=== PATIENT | female | born 2000 | race Caucasian/White ===

== ENCOUNTER 2018-06-22 07:39 | Emergency (ER) | payer BC ==
--- NOTE | 2018-06-22 08:31 | EDM.PDOC ---
ED HPI GENERAL MEDICAL PROBLEM - General Chief Complaint: Abdominal Pain Stated Complaint: RIGHT SIDE PAIN/NAUSEA Time Seen by Provider: 06/22/18 08:31 Source of Information: Reports: Patient History Limitations: Reports: No Limitations - History of Present Illness INITIAL COMMENTS - FREE TEXT/NARRATIVE: 17-year-old female presents the ED for evaluation of right allie-abdominal pain but primarily right lower quadrant. She states that the pain came on yesterday and hasn't really changed in position. She felt she was may be constipated and takes medication in her bowels did work fairly normally this morning without blood. She does have some feeling of urinary tract infection with dysuria and a sense of need to go or urgency. No history of kidney stones. Pain did cause nausea but she never did vomit. She ate normally yesterday. No associated fever but does feel chilled. Last trimester. Was 2 weeks ago. On time and as expected. She has done home test which was negative. No previous abdominal surgery. No pain in her back. She suggest terminal dysuria. Onset: Gradual Onset Date: 06/21/18 (Diffuse right allie-abdominal discomfort and pain) Duration: Day(s): (24 hours) Location: Reports: Abdomen (Right lower quadrant of the abdomen. No radiation) Quality: Reports: Ache Severity: Moderate (4-10) Improves with: Reports: Rest Worsens with: Reports: Movement Context: Reports: Other (Spontaneous occurrence). Denies: Activity (Hurts to walk and to stand.), Exercise, Lifting, Sick Contact, Trauma Associated Symptoms: Reports: Fever/Chills, Malaise, Nausea/Vomiting (Chills but no fever). Denies: Confusion, Chest Pain, Cough, cough w sputum, Diaphoresis, Headaches, Loss of Appetite, Rash, Seizure (Minimal nausea no vomiting), Shortness of Breath, Syncope, Weakness Treatments TEXTILES PRINTER: Reports: Other (see below) Other Treatments TEXTILES PRINTER: fiber, probiotic Right Abdomen Pain Score (Numeric/FACES): 6 - Related Data Allergies Allergy/AdvReac Type Severity Reaction Status Date / Time No Known Allergies Allergy Verified 06/22/18 07:57 Home Meds: Home Meds Phenazopyridine HCl [Pyridium] 100 mg PO Q6H #4 tablet 06/22/18 [Rx] Sulfamethoxazole/Trimethoprim [Bactrim Ds Tablet] 1 each PO BID #14 tablet 06/22 [Rx] Past Medical History Respiratory History: Reports: Asthma - Infectious Disease History Infectious Disease History: Reports: Chicken Pox Social & Family History - Family History Family Medical History: Noncontributory - Tobacco Use Smoking Status *Q: Light Tobacco Smoker Years of Tobacco use: 2 Packs/Tins Daily: 0.5 - Caffeine Use Caffeine Use: Reports: None - Recreational Drug Use Recreational Drug Use: No - Living Situation & Occupation Living situation: Reports: Single Occupation: Employed ED ROS GENERAL - Review of Systems Review Of Systems: See Below Constitutional: Reports: Chills, Malaise, Weakness, Fatigue, Decreased Appetite. Denies: Fever, Weight Loss HEENT: Reports: No Symptoms Respiratory: Reports: No Symptoms Cardiovascular: Reports: No Symptoms Endocrine: Reports: No Symptoms GI/Abdominal: Reports: Abdominal Pain, Constipation (She has her present illness ), Nausea (Committed nausea). Denies: Diarrhea, Decreased Appetite, Difficulty Swallowing, Hematemesis, Hematochezia, Melena, Vomiting : Reports: Frequency, Urgency. Denies: Dysuria Musculoskeletal: Reports: No Symptoms Skin: Reports: No Symptoms Neurological: Reports: No Symptoms Psychiatric: Reports: No Symptoms Hematologic/Lymphatic: Reports: No Symptoms Immunologic: Reports: No Symptoms ED EXAM, GI/ABD - Physical Exam Exam: See Below Exam Limited By: No Limitations General Appearance: Alert, WD/WN, No Apparent Distress, Other (Vital signs are normal and she is afebrile.) Eyes: Bilateral: Normal Appearance (No jaundice) Throat/Mouth: Normal Inspection, Normal Lips, Normal Oropharynx Neck: Normal Inspection, Supple, Non-Tender, Full Range of Motion. No: Lymphadenopathy (L), Lymphadenopathy (R) Respiratory/Chest: No Respiratory Distress, Lungs Clear, Normal Breath Sounds, No Accessory Muscle Use Cardiovascular: Normal Peripheral Pulses, Regular Rate, Rhythm, No Edema, No Gallop, No Murmur GI/Abdominal Exam: Normal Bowel Sounds, Soft, Non-Tender, No Organomegaly, No Abnormal Bruit, No Mass, Pelvis Stable, Tender (Mild tenderness right upper quadrant and over McBurney's point but). No: Guarding, Rigid, Rebound Back Exam: Normal Inspection, Full Range of Motion. No: CVA Tenderness (L), CVA Tenderness (R) Extremities: Normal Inspection, Normal Range of Motion, Non-Tender, No Pedal Edema, Normal Capillary Refill Neurological: Alert, Oriented, CN II-XII Intact, Normal Cognition, Normal Gait Psychiatric: Normal Affect, Normal Mood Skin Exam: Warm, Dry, Intact, Normal Color, No Rash Course - Vital Signs Last Recorded V/S: Last Vital Signs Temp 36.3 C 06/22/18 07:57 Pulse 89 06/22/18 07:57 Resp 20 06/22/18 07:57 BP 127/63 06/22/18 07:57 Pulse Ox 95 06/22/18 07:57 - Orders/Labs/Meds Labs: Laboratory Tests 06/22/18 06/22/18 06/22/18 Range/Units 08:25 08:25 08:25 WBC 7.97 (3.98-10.04) K/mm3 RBC 4.31 (3.98-5.22) M/mm3 Hgb 12.8 (11.2-15.7) gm/L Hct 38.3 (34.1-44.9) % MCV 88.9 (79.4-94.8) fl MCH 29.7 (25.6-32.2) pg MCHC 33.4 (32.2-35.5) g/dl RDW Std Deviation 41.0 (36.4-46.3) fL Plt Count 230 (182-369) K/mm3 MPV 10.2 (9.4-12.3) fl Neutrophils % (Manual) 73 H (40-60) % Band Neutrophils % 1 (0-10) % Lymphocytes % (Manual) 25 (20-40) % Atypical Lymphs % 0 % Monocytes % (Manual) 0 L (2-10) % Eosinophils % (Manual) 1 (0.7-5.8) % Basophils % (Manual) 0 L (0.1-1.2) Platelet Estimate Adequate RBC Morph Comment Normal Sodium 140 (136-145) mEq/L Potassium 3.8 (3.5-5.1) mEq/L Chloride 103 (98-107) mEq/L Carbon Dioxide 26 (21-32) mEq/L Anion Gap 14.8 (5-15) BUN 11 (7-18) mg/dL Creatinine 0.8 (0.55-1.02) mg/dL Est Cr Clr Drug Dosing 89.46 mL/min Estimated GFR (MDRD) > 60 (>60) mL/min BUN/Creatinine Ratio 13.8 L (14-18) Glucose 99 (74-106) mg/dL Calcium 9.0 (8.5-10.1) mg/dL Total Bilirubin 0.5 (0.2-1.0) mg/dL AST 20 (15-37) U/L ALT 21 (14-59) U/L Alkaline Phosphatase 80 (46-116) U/L C-Reactive Protein 2.3 H* (<1.0) mg/dL Total Protein 7.6 (6.4-8.2) g/dl Albumin 3.6 (3.4-5.0) g/dl Globulin 4.0 gm/dL Albumin/Globulin Ratio 0.9 L (1-2) Lipase 116 (73-393) U/L HCG, Qual Negative (NEGATIVE) Urine Color (Yellow) Urine Appearance (Clear) Urine pH (5.0-8.0) Ur Specific [place] (1.005-1.030) Urine Protein (Negative) Urine Glucose (UA) (Negative) Urine Ketones (Negative) Urine Occult Blood (Negative) Urine Nitrite (Negative) Urine Bilirubin (Negative) Urine Urobilinogen (0.2-1.0) Ur Leukocyte Esterase (Negative) Urine RBC (0-5) /hpf Urine WBC (0-5) /hpf Ur Epithelial Cells (0-5) /hpf Urine Bacteria (FEW) /hpf Urine Mucus (FEW) /hpf 06/22/18 Range/Units 09:05 WBC (3.98-10.04) K/mm3 RBC (3.98-5.22) M/mm3 Hgb (11.2-15.7) gm/L Hct (34.1-44.9) % MCV (79.4-94.8) fl MCH (25.6-32.2) pg MCHC (32.2-35.5) g/dl RDW Std Deviation (36.4-46.3) fL Plt Count (182-369) K/mm3 MPV (9.4-12.3) fl Neutrophils % (Manual) (40-60) % Band Neutrophils % (0-10) % Lymphocytes % (Manual) (20-40) % Atypical Lymphs % % Monocytes % (Manual) (2-10) % Eosinophils % (Manual) (0.7-5.8) % Basophils % (Manual) (0.1-1.2) Platelet Estimate RBC Morph Comment Sodium (136-145) mEq/L Potassium (3.5-5.1) mEq/L Chloride (98-107) mEq/L Carbon Dioxide (21-32) mEq/L Anion Gap (5-15) BUN (7-18) mg/dL Creatinine (0.55-1.02) mg/dL Est Cr Clr Drug Dosing mL/min Estimated GFR (MDRD) (>60) mL/min BUN/Creatinine Ratio (14-18) Glucose (74-106) mg/dL Calcium (8.5-10.1) mg/dL Total Bilirubin (0.2-1.0) mg/dL AST (15-37) U/L ALT (14-59) U/L Alkaline Phosphatase (46-116) U/L C-Reactive Protein (<1.0) mg/dL Total Protein (6.4-8.2) g/dl Albumin (3.4-5.0) g/dl Globulin gm/dL Albumin/Globulin Ratio (1-2) Lipase (73-393) U/L HCG, Qual (NEGATIVE) Urine Color Yellow (Yellow) Urine Appearance Slt cloudy H (Clear) Urine pH 7.0 (5.0-8.0) Ur Specific [place] 1.020 (1.005-1.030) Urine Protein 2+ H (Negative) Urine Glucose (UA) Negative (Negative) Urine Ketones Negative (Negative) Urine Occult Blood 2+ H (Negative) Urine Nitrite Negative (Negative) Urine Bilirubin Negative (Negative) Urine Urobilinogen 0.2 (0.2-1.0) Ur Leukocyte Esterase 2+ H (Negative) Urine RBC 5-10 H (0-5) /hpf Urine WBC 20-30 H (0-5) /hpf Ur Epithelial Cells 0-5 (0-5) /hpf Urine Bacteria Few (FEW) /hpf Urine Mucus Few (FEW) /hpf Meds: Medications Discontinued Medications Generic Name Dose Route Start Last Admin Trade Name Freq PRN Reason Stop Dose Admin Dextrose/Sodium Chloride 1,000 mls @ 500 mls/hr 06/22/18 08:45 06/22/18 08:45 Dextrose 5%-Normal Saline IV 500 mls/hr ASDIRECTED EDISON Administration Ceftriaxone Sodium 2 gm/ 100 mls @ 100 mls/hr 06/22/18 10:45 06/22/18 11:11 Sodium Chloride IV 100 mls/hr Q24H EDISON Administration Ketorolac Tromethamine 30 mg 06/22/18 08:45 06/22/18 09:03 Toradol IVPUSH 30 mg ONETIME EDISON Administration Metoclopramide HCl 7.5 mg 06/22/18 08:37 06/22/18 08:46 Reglan IVPUSH 06/22/18 08:38 7.5 mg ONETIME ONE Administration - Radiology Interpretation Free Text/Narrative:: 17-year-old female presents the ED with diffuse right allie-abdominal discomfort but primarily right lower quadrant. She states started yesterday and is not gone away. She has had good bowel movement this morning with no relief of the pain. She felt she had been constipated. Associated mild nausea with decreased appetite but no vomiting. No fever but some mild chills. She does have a history of frequency and urgency suggesting possible urinary tract origin. No history of kidney stones. Benign abdominal examination. Chest is clear. No costovertebral angle tenderness. Plan IV D5 normal saline at 500 mils an hour. Given Toradol 30 mg IV with Reglan 7.5 mg IV for relief of pain and nausea. One view the abdomen done. Routine labs including a urinalysis and a beta-hCG. - Re-Assessments/Exams Free Text/Narrative Re-Assessment/Exam: 06/22/18 10:35 KUB reveals normal bowel gas pattern. There is one slightly dilated loop of small bowel in the left mid abdomen. More like an ileus type pattern. No bowel obstruction. Very little stool within the colon.Labs reveal a normal white count at 7.97 with 73% neutrophils and 1% band cells. Hemoglobin is 12.8 with hematocrit of 38.3. Platelet count is 2 and 30,000. Sodium is 140 with potassium of 3.8 chloride 103 with a bicarbonate 26. And a gap is 14.8. BUN is 11 with a creatinine of 0.8. GFR is greater than 60. Glucose is 99 calcium is 9.0. Total bilirubin is 0.5 and the remainder the liver function studies are normal. C-reactive protein is elevated at 2.3. Total protein is 7.6 with albumin fraction of 3.6. Lipase is 116 beta-hCG was negative. Urinalysis shows 2+ proteinuria 2+ occult blood 2+ leukocyte esterase 5-10 RBCs per power field and 20-30 WBCs per high-power field. Urine culture will be ordered. Patient will be given Rocephin 2 g IV for urinary tract infection which I believe is likely involving the ureter on the right side causing her recurrent pain syndrome since she is not systemically ill with an elevated white count. 06/22/18 12:10: Patient is completed 2 g of Rocephin intravenously. Feeling improved. She'll be discharged home to start antibiotic Bactrim double strength twice daily for the next 7 days starting tomorrow morning for urinary tract infection. I will write a prescription for Pyridium 100 mg to be taken every 6 hours 4 doses to relieve urgency and frequency and terminal dysuria as well. Follow-up with personal care provider for any further problem's occur. Departure - Departure Time of Disposition: 12:22 Disposition: Home, Self-Care 01 Condition: Fair Clinical Impression: Urinary tract infection Qualifiers: Urinary tract infection type: acute cystitis Hematuria presence: without hematuria Qualified Code(s): N30.00 - Acute cystitis without hematuria - Discharge Information *PRESCRIPTION DRUG MONITORING PROGRAM REVIEWED*: Not Applicable *COPY OF PRESCRIPTION DRUG MONITORING REPORT IN PATIENT MIRANDA: Not Applicable Prescriptions: Phenazopyridine HCl [Pyridium] 100 mg PO Q6H #4 tablet Sulfamethoxazole/Trimethoprim [Bactrim Ds Tablet] 1 each PO BID #14 tablet Instructions: Urinary Tract Infection, Adult Referrals: PCP,None [Primary Care Provider] - Forms: ED Department Discharge Additional Instructions: Evaluation the emergency room today in regards to acute onset of right lower quadrant abdominal pain associated with some urinary frequency and urgency. Evaluation identified a urinary tract infection involving the bladder and the lower lower portion of your right ureter causing your abdominal pain. This will also full cause low-grade fever at times and perhaps some chills. Started in the ED with intravenous antibiotic Rocephin 2 g. Will need to start oral antibiotic tomorrow morning Bactrim double strength 1 tab twice daily for the next 7 days to clear up urinary tract infection completely. Intense use Motrin 600 mg every 6 hours as needed for relief of abdominal pain and inflammation. Expect marked improvement in symptoms over the next 36 hours. Follow-up with personal care physician if any other problems occur.
[2018-06-22] MEDS ORDERED: Metoclopramide 10 MG/2 ML SDV IVPUSH ONE (08:37)
[2018-06-22] MEDS ORDERED: Dextrose 5%-0.9% NaCl 1,000 ML IV SCH (08:45)
[2018-06-22] MEDS ORDERED: Ketorolac 30 MG/ML SDV IVPUSH SCH (08:45)
--- NOTE | 2018-06-22 10:44 | CR ---
Abdomen: Supine view of the abdomen was obtained. Comparison: No previous study. Gas noted within colon and within several small bowel loops which are felt to be within normal limits. No abnormal calcifications or soft tissue abnormality is seen. Bony structures are unremarkable. Impression: 1. Nothing acute is seen on supine abdominal x-ray. Diagnostic code #1
[2018-06-22] MEDS ORDERED: cefTRIAXone 2 GM in Sodium Chloride 0.9% 100 ML IV SCH (10:45)
== END 2018-06-22 12:35 | disposition home or self-care (01) ==
LOC: JD.ED 07:39
DX: N30.00 Acute cystitis without hematuria (principal); F17.210 Nicotine dependence, cigarettes, uncomplicated
CPT/HCPCS: 36415; 74018; 80053; 81001; 83690; 84703; 85007; 85027; 86140; 96361; 96365; 96375; 99284; J0696; J1885; J2765; J7030; J7042

== ENCOUNTER 2019-07-08 06:34 | Emergency (ER) | payer SELFPAY ==
--- NOTE | 2019-07-08 08:10 | EDM.PDOC ---
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 She is 1 para 0 thought to be about 7 weeks with her LMP about 7 weeks ago. Artery was some very mild spotting 2 days ago and then this morning awakened with mildly increased spotting and now also increased lower abdominal discomfort and cramping without radiation. No voiding symptomatology. No fever or chills. No chest pain or difficulty breathing. No shoulder pain or unusual dizziness. Abdomen Pain Score (Numeric/FACES): 6 - Related Data Allergies Allergy/AdvReac Type Severity Reaction Status Date / Time No Known Allergies Allergy Verified 07/08/19 06:48 Home Meds: Home Meds . [No Known Home Meds] 07/08/19 [History] Past Medical History - Past Health History Medical/Surgical History: Denies Medical/Surgical History Respiratory History: Reports: Asthma - Infectious Disease History Infectious Disease History: Reports: Chicken Pox Social & Family History - Family History Family Medical History: Noncontributory - Tobacco Use Smoking Status *Q: Never Smoker - Caffeine Use Caffeine Use: Reports: None - Recreational Drug Use Recreational Drug Use: No - Living Situation & Occupation Living situation: Reports: Single Occupation: Employed ED ROS GENERAL - Review of Systems Review Of Systems: See Below Constitutional: Denies: Fever, Chills, Diaphoresis HEENT: Reports: No Symptoms Respiratory: Denies: Shortness of Breath Cardiovascular: Denies: Chest Pain GI/Abdominal: Reports: Abdominal Pain (Mild to moderate lower mid pelvic discomfort) Musculoskeletal: Denies: Shoulder Pain, Back Pain Skin: Reports: No Symptoms Neurological: Reports: No Symptoms ED EXAM - Physical Exam Exam: See Below General Appearance: Alert, No Apparent Distress Throat/Mouth: Normal Inspection Head: Atraumatic Neck: Supple Respiratory/Chest: No Respiratory Distress, Lungs Clear Cardiovascular: Regular Rate, Rhythm GI/Abdominal Exam: Soft, Tender (Very mild tenderness lower mid abdomen and pelvis, upper abdomen nontender) Back Exam: No: CVA Tenderness (L), CVA Tenderness (R) Extremities: Normal Inspection Neurological: Alert, Oriented, No Motor/Sensory Deficits Skin Exam: Warm, Dry, Normal Color Course - Vital Signs Last Recorded V/S: Last Vital Signs Temp 98.2 F 07/08/19 06:45 Pulse 86 07/08/19 06:45 Resp 16 07/08/19 06:45 BP 115/78 07/08/19 06:45 Pulse Ox 99 07/08/19 06:45 - Orders/Labs/Meds Labs: Laboratory Tests 07/08/19 07/08/19 07/08/19 Range/Units 07:35 07:35 07:35 WBC 5.18 (3.98-10.04) K/mm3 RBC 4.48 (3.98-5.22) M/mm3 Hgb 13.5 (11.2-15.7) gm/dl Hct 40.5 (34.1-44.9) % MCV 90.4 (79.4-94.8) fl MCH 30.1 (25.6-32.2) pg MCHC 33.3 (32.2-35.5) g/dl RDW Std Deviation 40.8 (36.4-46.3) fL Plt Count 230 (182-369) K/mm3 MPV 10.1 (9.4-12.3) fl Neut % (Auto) 57.6 (34.0-71.1) % Lymph % (Auto) 32.2 (19.3-51.7) % Brooke % (Auto) 7.9 (4.7-12.5) % Eos % (Auto) 1.5 (0.7-5.8) Baso % (Auto) 0.6 (0.1-1.2) % Neut # (Auto) 2.98 (1.56-6.13) K/mm3 Lymph # (Auto) 1.67 (1.18-3.74) K/mm3 Brooke # (Auto) 0.41 H (0.24-0.36) K/mm3 Eos # (Auto) 0.08 (0.04-0.36) K/mm3 Baso # (Auto) 0.03 (0.01-0.08) K/mm3 HCG, Qual Positive H (NEGATIVE) HCG, Quant 1594.0 mIU/mL - Re-Assessments/Exams Free Text/Narrative Re-Assessment/Exam: 07/08/19 09:52 Departure - Departure Time of Disposition: 09:54 Disposition: Home, Self-Care 01 Condition: Fair Clinical Impression: Threatened , First trimester - Discharge Information Instructions: Threatened Miscarriage, [id number], Vaginal Bleeding During , First Trimester, [id number] Referrals: PCP,None [Primary Care Provider] - Forms: ED Department Discharge, ED Return to Work/School Form Additional Instructions: Rest, drink plenty of water to maintain hydration. You may take Tylenol every 6- 8 hours if needed for severe discomfort. Try see one of our OB providers at either our [facility] or [facility] early next week, call for appointment. Return to ED if you do experience heavy vaginal bleeding soaking one or more pads per hour for more than 2 hours, or if symptoms otherwise worsening in any way.
--- NOTE | 2019-07-08 09:57 | US ---
First trimester obstetrical ultrasound: Multiple real-time images were obtained transvaginally. Comparison: No prior study for current . Dates: LMP: LMP given as 05/14/19, KUN 02/18/20, gestational age 7 weeks 6 days Current ultrasound: KUN 03/03/20, gestational age 5 weeks 6 days Single intrauterine gestation is seen. Amniotic fluid volume is normal. Small pole is identified. No subchorionic hemorrhage is identified. Small amount of free fluid is seen within the pelvis which is believed to be within normal limits. Ovaries are within normal limits. Measurements: Lorane-rump length: 0.53 cm - 6 weeks 2 days Heart rate: No heart activity is seen at this time. Impression: 1. Single intrauterine gestation. Dates as noted above. 2. No heart activity is seen. Uncertain at this time if this represents a normal finding due to early age of or represents a nonviable . If patient does not miscarry, recommend follow-up study in 11 days. 3. Small amount of free fluid within the pelvis believed to be incidental. Diagnostic code #3
== END 2019-07-08 10:08 | disposition home or self-care (01) ==
LOC: JD.ED 06:34
DX: O20.0 Threatened abortion (principal); O99.511 Diseases of the respiratory system complicating pregnancy, first trimester; J45.909 Unspecified asthma, uncomplicated; Z3A.01 Less than 8 weeks gestation of pregnancy
CPT/HCPCS: 36415; 76817; 76817-26; 84702; 84703; 85025; 99284-25

== ENCOUNTER 2019-07-09 17:20 | Emergency (ER) | payer SELFPAY ==
--- NOTE | 2019-07-09 18:49 | EDM.PDOC ---
ED HPI GENERAL MEDICAL PROBLEM - General Chief Complaint: JACK SETTER Problem Stated Complaint: PREG/CRAMPING AND BLEEDING Time Seen by Provider: 07/09/19 17:32 Source of Information: Reports: Patient, RN Notes Reviewed History Limitations: Reports: No Limitations - History of Present Illness INITIAL COMMENTS - FREE TEXT/NARRATIVE: Patient is a 19-year-old female who presents to the ED for the evaluation of bleeding in . The patient was most recently evaluated here yesterday morning by Dr. Starr, and was told she had a threatened miscarriage. The patient notes that since this visit and after the pelvic ultrasound, the bleeding has worsened. And she has also passed some clots with some light pink tissue intermixed. She states that she has been wearing overnight pads all day , and she is working on soaking through her third one at [facility]'s visit. She notes that when she goes to the bathroom and sitting on the toilet she can see the blood dripping out of her. Patient was around 6 weeks and there was an intrauterine established yesterday, the patient's hCG level yesterday was 1594. The patient is a . The patient states that she did schedule an appointment with Dr. Barrera for August 11. She notes she is still having lower pelvic cramping, and this is constant. She denies any dizziness, lightheadedness, or shortness of breath. Lower Pelvic Pain Score (Numeric/FACES): 7 - Related Data Allergies Allergy/AdvReac Type Severity Reaction Status Date / Time No Known Allergies Allergy Verified 07/08/19 06:48 Home Meds: Home Meds . [No Known Home Meds] 07/08/19 [History] Past Medical History - Past Health History Medical/Surgical History: Denies Medical/Surgical History Respiratory History: Reports: Asthma JACK SETTER History: Reports: - Infectious Disease History Infectious Disease History: Reports: Chicken Pox Social & Family History - Family History Family Medical History: Noncontributory - Tobacco Use Smoking Status *Q: Never Smoker - Caffeine Use Caffeine Use: Reports: None - Recreational Drug Use Recreational Drug Use: No - Living Situation & Occupation Living situation: Reports: Single Occupation: Employed ED ROS GENERAL - Review of Systems Review Of Systems: See Below Constitutional: Denies: Fever, Chills HEENT: Reports: No Symptoms Respiratory: Denies: Shortness of Breath Cardiovascular: Denies: Chest Pain Endocrine: Reports: No Symptoms GI/Abdominal: Reports: Abdominal Pain (pelvic pain/tenderness). Denies: Nausea , Vomiting : Reports: Other (heavy vaginal bleeding). Denies: Dysuria Musculoskeletal: Reports: No Symptoms Skin: Reports: No Symptoms Neurological: Denies: Dizziness Psychiatric: Reports: No Symptoms Hematologic/Lymphatic: Reports: No Symptoms Immunologic: Reports: No Symptoms ED EXAM - Physical Exam Exam: See Below Exam Limited By: No Limitations General Appearance: Alert, WD/WN, No Apparent Distress (patient is tearful, as she believes she is having a miscarriage) Eye Exam: Bilateral Eye: EOMI, Normal Inspection, PERRL Throat/Mouth: Normal Inspection, Normal Lips, Normal Teeth, Normal Gums, Normal Oropharynx, Normal Voice, No Airway Compromise Respiratory/Chest: No Respiratory Distress, Lungs Clear, Normal Breath Sounds, No Accessory Muscle Use, Chest Non-Tender Cardiovascular: Normal Peripheral Pulses, Regular Rate, Rhythm, No Murmur GI/Abdominal Exam: Normal Bowel Sounds, Soft, No Distention, No Mass, Tender ( over pelvic area) (Female) Exam: Vaginal Bleeding Heart Tones: Not Roane Movement: Not Appreciated Extremities: Normal Inspection, Normal Capillary Refill Neurological: Alert, Oriented, Normal Cognition, No Motor/Sensory Deficits Psychiatric: Normal Affect, Normal Mood Skin Exam: Warm, Dry, Intact, Normal Color, No Rash Course - Vital Signs Last Recorded V/S: Last Vital Signs Temp 98.9 F 07/09/19 17:38 Pulse 67 07/09/19 17:38 Resp 20 07/09/19 17:38 BP 117/75 07/09/19 17:38 Pulse Ox 99 07/09/19 17:38 - Orders/Labs/Meds Orders: Active Orders 24 hr Category Date Time Status PATIENT RETYPE [BBK] Routine Lab 07/09/19 19:05 Ordered Labs: Laboratory Tests 07/09/19 07/09/19 07/09/19 Range/Units 17:51 17:51 17:51 Hgb 14.4 (11.2-15.7) gm/dl Hct 42.8 (34.1-44.9) % Sodium (136-145) mEq/L Potassium (3.5-5.1) mEq/L Chloride (98-107) mEq/L Carbon Dioxide (21-32) mEq/L Anion Gap (5-15) BUN (7-18) mg/dL Creatinine (0.55-1.02) mg/dL Est Cr Clr Drug Dosing mL/min Estimated GFR (MDRD) (>60) mL/min BUN/Creatinine Ratio (14-18) Glucose (74-106) mg/dL Calcium (8.5-10.1) mg/dL Total Bilirubin (0.2-1.0) mg/dL AST (15-37) U/L ALT (14-59) U/L Alkaline Phosphatase (46-116) U/L Total Protein (6.4-8.2) g/dl Albumin (3.4-5.0) g/dl Globulin gm/dL Albumin/Globulin Ratio (1-2) HCG, Quant 476.0 mIU/mL Blood Type O POSITIVE Gel Antibody Screen Negative 07/09/19 Range/Units 17:51 Hgb (11.2-15.7) gm/dl Hct (34.1-44.9) % Sodium 138 (136-145) mEq/L Potassium 3.7 (3.5-5.1) mEq/L Chloride 104 (98-107) mEq/L Carbon Dioxide 24 (21-32) mEq/L Anion Gap 13.7 (5-15) BUN 10 (7-18) mg/dL Creatinine 0.7 (0.55-1.02) mg/dL Est Cr Clr Drug Dosing 100.55 mL/min Estimated GFR (MDRD) > 60 (>60) mL/min BUN/Creatinine Ratio 14.3 (14-18) Glucose 115 H (74-106) mg/dL Calcium 9.3 (8.5-10.1) mg/dL Total Bilirubin 0.1 L (0.2-1.0) mg/dL AST 13 L (15-37) U/L ALT 20 (14-59) U/L Alkaline Phosphatase 58 (46-116) U/L Total Protein 7.3 (6.4-8.2) g/dl Albumin 3.6 (3.4-5.0) g/dl Globulin 3.7 gm/dL Albumin/Globulin Ratio 1.0 (1-2) HCG, Quant mIU/mL Blood Type Gel Antibody Screen - Re-Assessments/Exams Free Text/Narrative Re-Assessment/Exam: 07/09/19 17:49 Patient presents to the ED for evaluation of increased vaginal bleeding in first trimester . I did order a hematocrit hemoglobin, type and screen , hCG quantitative level and a metabolic panel for laboratory evaluation. As stated in history of present illness, the patient's quantitative hCG yesterday was done and it was 1594. 07/09/19 18:51 Patient's initial labs have returned, and demonstrate a hCG quantitative level of 476, her hemoglobin and hematocrit are within normal limits, and there are no metabolic abnormalities, the type and screen is still pending at this time. It is likely that the patient is suffering from a spontaneous at this time, she will likely need Cytotec to help complete the process, I will wait until the type and screen is done to see if the patient needs RhoGAM, and we will consult JACK SETTER on-call for other recommendations. 07/09/19 19:19 Patient's blood type is O+. I did call JACK SETTER, Dr. Sheriff, and she recommends repeating the transvaginal ultrasound to see if all of the tissue has passed, I did order this at this time. Patient was made aware of the results of the testing, and is agreeable to the repeat ultrasound, pain medication was offered , however she declined at this time. 07/09/19 20:24 Patient's ultrasound is done, and demonstrates no intrauterine gestational sac which was seen yesterday, endometrial stripe somewhat thickened most likely due to normal endometrial reaction from recent . Findings are compatible with miscarriage. There is a small, located cyst noted within the left ovary measuring 1.9 cm. And the right ovary shows a small exophytic cyst within the adnexa measuring 1.4 cm. We will discharge the patient home with general recommendations, she should probably get a follow-up ultrasound in around 6 weeks to make sure that the cysts are resolving. Departure - Departure Time of Disposition: 20:26 Disposition: Home, Self-Care 01 Condition: Fair Clinical Impression: Complete - Discharge Information *PRESCRIPTION DRUG MONITORING PROGRAM REVIEWED*: No *COPY OF PRESCRIPTION DRUG MONITORING REPORT IN PATIENT MIRANDA: No Instructions: Miscarriage, [id number] Referrals: Miguel Barrera MD [Primary Care Provider] - Forms: ED Department Discharge, ED Return to Work/School Form Additional Instructions: You were evaluated in the ER today for vaginal bleeding in . Unfortunately seems to have suffered from a miscarriage by today's visit. Your hCG level has decreased from yesterday's level, and the ultrasound done today shows no intrauterine gestational sac that was visible at yesterday's visit. You should expect to have a heavier than normal period for the next 4-6 days. If you should develop lightheadedness, increased dizziness when standing, this would be cause for concern for loss of to much blood, and you should return to the ER for immediate evaluation. Otherwise you may take 600 mg every 6 hours, and this will help slow up the bleeding and help with the pelvic discomfort. Your ultrasound demonstrated a cyst on your left ovary measuring 1.9 cm, and a cyst on the right fallopian tube measuring 1.4 cm. You should get a follow-up ultrasound within 6 weeks, to make sure that these cysts are resolving. Your blood type is O+. You noted that you had an appointment with Dr. Barrera this coming Friday, recommend that you push that back one week to July 19, for a possible repeat hCG level and to make sure that everything is progressing the way it should. Please return to the ED if your symptoms change or worsen. - My Orders Last 24 Hours: My Active Orders 07/09/19 19:05 PATIENT RETYPE [BBK] Routine - Assessment/Plan Last 24 Hours: My Active Orders 07/09/19 19:05 PATIENT RETYPE [BBK] Routine
--- NOTE | 2019-07-09 20:20 | US ---
First trimester obstetrical ultrasound: Multiple real-time images were obtained transvaginally. Comparison: Previous first trimester obstetrical ultrasound performed one day earlier on 07/08/19. No intrauterine gestational sac is seen which was seen on earlier study. Endometrial stripe is somewhat thickened most likely due to normal endometrial reaction from recent . Findings are compatible with miscarriage. Small complicated cyst is noted within left ovary measuring 1.9 cm. Right ovary shows a small exophytic cyst within the adnexa measuring 1.4 cm. Impression: 1. Previous gestational sac is no longer seen compatible with miscarriage. 2. Slightly thickened endometrial stripe most likely residual from previous . 3. Incidental ovarian findings as noted above. Diagnostic code #3
== END 2019-07-09 20:55 | disposition home or self-care (01) ==
LOC: JD.ED 17:20 → SUPCPDRO 17:20 → JD.ED 20:55
DX: O03.9 Complete or unspecified spontaneous abortion without complication (principal)
CPT/HCPCS: 36415; 76817; 76817-26; 80053; 84702; 85014; 85018; 86850; 86900; 86901; 99284-25